=== PATIENT | female | born 1960 | race Caucasian/White ===

== ENCOUNTER → 2016-11-10 | Outpatient (CLI) | payer BC ==
--- NOTE | 2016-11-10 12:26 | RAD ---
Indication multinodular goiter. Grayscale imaging of the thyroid was performed. Note is made of a previous examination 07/24/2015. The right lobe of the thyroid measures 4.2 x 2 x 1.9 cm. The left lobe measures 4.5 x 2.2 x 1.9 cm. Both lobes of the thyroid have a very heterogeneous appearance and there is no defined area of normal thyroid. There are occasional masses seen in both lobes compatible with nodules but given the heterogeneous background discrete nodules are difficult to appreciate. The overall appearance of the thyroid gland is similar to the previous exam. IMPRESSION: Very heterogeneous thyroid with multiple small nodules suggested as outlined above. A significant change in the appearance of the thyroid relative to the previous study is not seen
== END | disposition home or self-care (01) ==
LOC: US 09:44
PROVIDERS: ATTEND Family Medicine
DX: E04.2 Nontoxic multinodular goiter (principal)
CPT/HCPCS: 76536

== ENCOUNTER → 2017-07-22 | Outpatient (CLI) | payer BC ==
--- NOTE | 2017-07-22 13:48 | RAD ---
Chest CT without contrast History: Follow-up of lung nodules. Comparison: July 10, 2015 and June 28, [address]s. Technique: Noncontrast helical CT scanning of the chest was performed. Multiplanar 2-D reconstructions were generated. PQRS Compliance Statement: One or more of the following individualized dose reduction techniques were utilized for this examination: 1. Automated exposure control 2. Adjustment of the mA and/or kV according to patient size 3. Use of iterative reconstruction technique Findings: Bilateral parenchyma scarring is unchanged. Again seen are 3 lung nodules mentioned previously specifically left lower lobe image 366 and series 6 and right lower lobe image 377 and superior segment right lower lobe image 123. These are stable. No new lung nodules or new lung infiltrates are evident. No pleural effusion or pneumothorax is seen. The proximal bronchial tree is stable. No enlarging thoracic lymphadenopathy is seen. Pericardial recess is seen in the aorta pulmonary window which is a normal anatomical variant. No pericardial effusion is seen. The heart size is normal. Left hepatic cyst is again evident and is unchanged. No adrenal mass is seen. No focal aneurysmal dilatation of the thoracic aorta is seen. No osteolytic process is seen. IMPRESSION: Stable subcentimeter bilateral lung nodules since July 10, 2015 consistent with a benign finding. Stable parenchymal scarring. No new lung nodule or new lung infiltrate is seen.
== END | disposition home or self-care (01) ==
LOC: CT 09:38
PROVIDERS: ATTEND Internal Medicine Pulmonary Disease
DX: R91.8 Other nonspecific abnormal finding of lung field (principal); J98.4 Other disorders of lung
CPT/HCPCS: 71250

== ENCOUNTER → 2019-10-05 | Outpatient (CLI) | payer BC ==
--- NOTE | 2019-10-05 17:27 | RAD ---
Examination: THYROID ULTRASOUND History: Multinodular goiter Comparison/Correlation: 01/22/2015, 07/24/2015 11/10/2016 thyroid ultrasound exam Findings: Thyroid ultrasound exam was performed. Right thyroid lobe measures 4.7 cm x 1.8 cm x 2 cm. Left thyroid lobe measures 5.3 cm x 2 cm x 1.8 cm. Right thyroid lobe hypoechoic structure inferior to the thyroid gland measuring 0.7 cm 0.7 cm x 0.8 cm is present without flow within it. It has remained stable compared to 11/10/2016 and may represent a parathyroid lesion. At the left thyroid lower pole, there is a 2.5 cm x 1.7 cm x 1.9 cm well-circumscribed heterogeneous mass present. Flow within it is slightly less compared to flow throughout the thyroid gland. Diffuse heterogeneous appearance of the thyroid gland is present with overall greater than expected flow. Thyroid isthmus measures up to 0.2 cm anteroposterior. Impression: Heterogeneous appearance of thyroid gland is again seen. Some of the previously described nodules are not well delineated currently. TI-RADS category 3-mildly suspicious. Ultrasound-guided fine-needle aspiration of a new dominant left thyroid lobe inferior pole nodule is recommended. Electronically signed by: Garret Queen MD (10/05/2019 5:24 PM) [id number]
== END | disposition home or self-care (01) ==
LOC: US 14:58
PROVIDERS: ATTEND Physician Assistant Medical
DX: E04.2 Nontoxic multinodular goiter (principal); R22.1 Localized swelling, mass and lump, neck
CPT/HCPCS: 76536

== ENCOUNTER → 2020-07-18 | Outpatient (CLI) | payer BC ==
--- NOTE | 2020-07-18 09:33 | RAD ---
PROCEDURE: XR EXAM OF ANKLE_LEFT 3V, XR FOOT_LEFT 2 VIEWS STUDY DATE: 07/18/2020 CLINICAL INDICATION / HISTORY: Reason: LEFT ANKLE PAIN / Spl. Instructions: / History: . TECHNIQUE: AP, lateral and oblique views of the left foot. COMPARISON: Left foot x-rays of 04/23/2015 FINDINGS: No fracture or dislocation is identified. The bone density is normal. The joint space width s are maintained, and there are no erosions to suggest an inflammatory arthropathy. No soft tissue ab normality is seen. IMPRESSION: No acute osseous abnormality. PROCEDURE: XR EXAM OF ANKLE_LEFT 3V, XR FOOT_LEFT 2 VIEWS STUDY DATE: 07/18/2020 CLINICAL INDICATION / HISTORY: LEFT ANKLE PAIN . TECHNIQUE: Left ankle 3 views. COMPARISON: 04/23/2015 FINDINGS: The ankle mortise is approximated, and the talar dome is unremarkable. The joint space widt hs are maintained. No fracture or dislocation is identified. No soft tissue swelling is appreciated. Tiny calcaneal spur present. IMPRESSION: No acute osseous abnormality. Electronically signed by: Lewis Alicia MD (07/18/2020 9:31 AM) [id number]
== END ==
LOC: PMG 08:56
PROVIDERS: ATTEND Physician Assistant Medical
DX: M25.572 Pain in left ankle and joints of left foot (principal)
CPT/HCPCS: 73610; 73620

== ENCOUNTER → 2021-08-02 | Outpatient (CLI) | payer BC ==
--- NOTE | 2021-08-04 18:01 | RAD ---
5 view lumbar spine radiographs 08/02/2021 CLINICAL HISTORY: Lifting injury. Low back pain. AP, 2 lateral and bilateral oblique digital radiographs of lumbar spine were obtained. The alignment of lumbar vertebrae is within normal limits. No fracture or subluxation lumbar vertebrae seen. Degene rative changes consisting of vertebral endplate sclerosis and minimal anterior vertebral body osteoph yte formation are seen involving the mid and lower lumbar disc spaces. Degenerative changes are seen involving the facet joints predominantly at the L4-5 and L5-S1 levels. IMPRESSION: Degenerative changes are seen involving lumbar spine as discussed above. No acute osseous abnormality is seen. Electronically signed by: Cody Cadena MD (08/04/2021 5:58 PM) [id number]
--- NOTE | 2021-08-04 18:05 | RAD ---
Bilateral SI joint radiographs 08/02/2021 CLINICAL HISTORY: SI joint pain. Lifting injury. An AP digital radiograph of the pelvis was obtained. AP and bilateral oblique digital radiographs of the sacrum to include the SI joints were obtained. Calcification are seen throughout the pelvis consi stent with phleboliths. No pelvic bone fracture is seen. Both hips are intact. No sacral fracture is noted. Mild to moderate degenerative changes are seen involving both SI joints. These consist of join t compartment narrowing, subchondral sclerosis and associated osteophyte formation. No erosive change s are seen. No ankylosis is seen. IMPRESSION: Mild to moderate degenerative changes are seen involving both SI joints. No acute osseous abnormality is seen. Electronically signed by: Cody Cadena MD (08/04/2021 6:02 PM) [id number]
== END ==
LOC: RAD 16:02
PROVIDERS: ATTEND Physician Assistant Medical
DX: M46.1 Sacroiliitis, not elsewhere classified (principal); M47.817 Spondylosis without myelopathy or radiculopathy, lumbosacral region; M53.3 Sacrococcygeal disorders, not elsewhere classified
CPT/HCPCS: 72110; 72202